=== PATIENT | female | born 1930 | race Caucasian/White ===

== ENCOUNTER 2017-09-06 12:23 | Emergency (ER) | payer MEDICARE, BC ==
[~2017-09-06] VITALS: Ht 167.6 cm; Wt 62.7 kg
[~2017-09-06 12:23] MED LIST: CEFU1TAB43 PO; SYNT75TA PO
[2017-09-06 12:33] VITALS: BP 139/62; PULSE 83; RESP 16; TEMP 99.1; O2SAT 97
[2017-09-06] MEDS ORDERED: SODIUM CHLORIDE 0.9% FLUSH 10 ML FLUSH IV FLUSH PRN (13:00)
--- NOTE | 2017-09-06 13:08 | PD ---
HPI Chief Complaint: Abdominal Pain Time Seen by Provider: 12:39 Travel History International Travel<30 days: No Contact w/Intl Traveler<30days: No Traveled to known affect area: No History of Present Illness HPI Patient is an 87-year-old female with history of gastroparesis, hypothyroidism, gerd who presents to the emergency room for evaluation of abdominal pain with nausea and vomiting. Patient reports that she had some wings to eat last night for dinner, reports that shortly thereafter, she began to have epigastric pain. Patient reports that she has been feeling nauseous and has been vomiting all night. Patient reports that she has an uncomfortable sensation to her epigastrium. Denies any chest pain or shortness of breath. Patient denies any constipation or diarrhea. Patient reports that she does follow-up with waistline joiner at [facility], she is unsure of the name of her waistline joiner. Reports that when she has had "gastritis," in the past, she has had similar symptoms. PFSH Past Medical History Cancer: No Cardiovascular Problems: No Diabetes: No Diminished Hearing: Yes (RIGHT EAR MUFFLED) Endocrine: Yes Genitourinary: No Hepatitis: No Hiatal Hernia: Yes Immune Disorder: No Musculoskeletal: No Neurologic: No Psychiatric: No Reproductive: No Respiratory: No Thyroid Disease: Yes ?: Not Menopausal: Yes Past Surgical History Abdominal Surgery: Yes (BOWEL OBSTRUCTION 2 YEARS AGO ) Eye Surgery: Yes (BILATERAL CATARACT SX) Gynecologic Surgery: Yes (HYSTERECTOMY ) Hysterectomy: Yes Joint Replacement: No Pacemaker: No Tympanostomy Tube: Yes (AT 10 Y/O) Social History Alcohol Use: No Tobacco Use: No Substance Use: No Allergies-Medications (Allergen,Severity, Reaction): Coded Allergies: celecoxib (Unverified Allergy, Severe, 09/06/17) penicillin G (Unverified Allergy, Severe, 09/06/17) Reported Meds & Prescriptions Reported Meds & Active Scripts Active Miralax Powder (Polyethylene Glycol 3350 Powder) 17 Gm Powd 17 Gm PO DAILY Mix and dissolve one measuring cap-ful (17 grams) in water or juice. Reported [domperidone] 10 Mg PO Q6HR Levothyroxine (Levothyroxine Sodium) 75 Mcg Tab 75 Mcg PO DAILY Pantoprazole (Pantoprazole Sodium) 40 Mg Tab 40 Mg PO DAILY Review of Systems General / Constitutional: No: Fever Eyes: No: Visual changes HENT: No: Headaches Cardiovascular: No: Chest Pain or Discomfort, Palpitations, Irregular Rhythm, Tachycardia Respiratory: No: Shortness of Breath Gastrointestinal: Positive: Nausea, Vomiting, Abdominal Pain, No: Diarrhea, Constipation Genitourinary: No: Dysuria Musculoskeletal: No: Pain Skin: No Rash Neurologic: No: Weakness Psychiatric: No: Depression Endocrine: No: Polydipsia Hematologic/Lymphatic: No: Easy Bruising Physical Exam Narrative GENERAL: Mild distress SKIN: Focused skin assessment warm/dry. HEAD: Atraumatic. Normocephalic. EYES: Pupils equal and round. No scleral icterus. No injection or drainage. ENT: No nasal bleeding or discharge. Mucous membranes pink and moist. NECK: Trachea midline. No JVD. CARDIOVASCULAR: Regular rate and rhythm. No murmur appreciated. RESPIRATORY: No accessory muscle use. Clear to auscultation. Breath sounds equal bilaterally. GASTROINTESTINAL: Abdomen soft, increased tenderness to epigastrium with no rebound or guarding, nondistended. Hepatic and splenic margins not palpable. MUSCULOSKELETAL: No obvious deformities. No clubbing. No cyanosis. No edema. NEUROLOGICAL: Awake and alert. No obvious cranial nerve deficits. Motor grossly within normal limits. Normal speech. PSYCHIATRIC: Appropriate mood and affect; insight and judgment normal. Data Data Last Documented VS Vital Signs Date Time Temp Pulse Resp B/P (MAP) Pulse Ox O2 Delivery O2 Flow Rate FiO2 09/06/17 15:15 86 18 155/77 (103) 99 Room Air 09/06/17 12:33 99.1 Orders Orders Urinalysis - C+S If Indicated (09/06/17 12:30) Complete Blood Count With Diff (09/06/17 12:52) Comprehensive Metabolic Panel (09/06/17 12:52) Lipase (09/06/17 12:52) Prothrombin Time / Inr (Pt) (09/06/17 12:52) Act Partial Throm Time (Ptt) (09/06/17 12:52) Iv Access Insert/Monitor (09/06/17 12:52) Ecg Monitoring (09/06/17 12:52) Oximetry (09/06/17 12:52) NPO (09/06/17 12:52) Sodium Chloride 0.9% Flush (Ns Flush) (09/06/17 13:00) Electrocardiogram (09/06/17 12:52) Ct Abd/Pel W Iv Contrast(Rout) (09/06/17 12:58) Sodium Chlor 0.9% 1000 Ml Inj (Ns 1000 M (09/06/17 14:15) Morphine Inj (Morphine Inj) (09/06/17 14:15) Ondansetron Inj (Zofran Inj) (09/06/17 14:15) Iohexol 350 Inj (Omnipaque 350 Inj) (09/06/17 14:37) Ondansetron Inj (Zofran Inj) (09/06/17 15:15) Al-Mag Hy-Si 40-40-4 Mg/Ml Liq (Mag-Al P (09/06/17 15:30) Lidocaine 2% Viscous (Xylocaine 2% Visco (09/06/17 15:30) Ed Discharge Order (09/06/17 16:07) Labs Laboratory Tests Test 09/06/17 13:10 09/06/17 13:15 Urine Collection Type CLEAN CATCH Urine Color YELLOW Urine Turbidity CLEAR Urine pH 7.5 Urine Specific [place] 1.020 Urine Protein NEG mg/dL Urine Glucose (UA) NEG mg/dL Urine Ketones TRACE mg/dL Urine Occult Blood NEG Urine Nitrite NEG Urine Bilirubin NEG Urine Urobilinogen 0.2 MG/DL Urine Leukocyte Esterase NEG Urine WBC 0-2 /hpf Urine Squamous Epithelial Cells > 8 /hpf Urine Amorphous Sediment FEW Microscopic Urinalysis Comment CULT NOT INDICATED Urine Collection Time 13:10 White Blood Count 6.6 TH/MM3 Red Blood Count 4.17 MIL/MM3 Hemoglobin 13.4 GM/DL Hematocrit 39.0 % Mean Corpuscular Volume 93.7 FL Mean Corpuscular Hemoglobin 32.1 PG Mean Corpuscular Hemoglobin Concent 34.2 % Red Cell Distribution Width 13.0 % Platelet Count 317 TH/MM3 Mean Platelet Volume 8.2 FL Neutrophils (%) (Auto) 69.4 % Lymphocytes (%) (Auto) 17.7 % Monocytes (%) (Auto) 11.4 % Eosinophils (%) (Auto) 0.5 % Basophils (%) (Auto) 1.0 % Neutrophils # (Auto) 4.6 TH/MM3 Lymphocytes # (Auto) 1.2 TH/MM3 Monocytes # (Auto) 0.7 TH/MM3 Eosinophils # (Auto) 0.0 TH/MM3 Basophils # (Auto) 0.1 TH/MM3 CBC Comment DIFF FINAL Differential Comment Prothrombin Time 10.5 SEC Prothromb Time International Ratio 1.0 RATIO Activated Partial Thromboplast Time 25.7 SEC Blood Urea Nitrogen 13 MG/DL Creatinine 0.62 MG/DL Random Glucose 146 MG/DL Total Protein 6.8 GM/DL Albumin 3.5 GM/DL Calcium Level 10.3 MG/DL Alkaline Phosphatase 67 U/L Aspartate Amino Transf (AST/SGOT) 13 U/L Alanine Aminotransferase (ALT/SGPT) 13 U/L Total Bilirubin 0.3 MG/DL Sodium Level 138 MEQ/L Potassium Level 3.7 MEQ/L Chloride Level 105 MEQ/L Carbon Dioxide Level 26.8 MEQ/L Anion Gap 6 MEQ/L Estimat Glomerular Filtration Rate 91 ML/MIN Lipase 145 U/L [facility] Medical Decision Making Medical Screen Exam Complete: Yes Emergency Medical Condition: Yes Medical Record Reviewed: Yes Interpretation(s) EKG at 1304: NSR at 76bpm, qt/qtc: 362/392, no acute st or t wave changes Vital Signs Date Time Temp Pulse Resp B/P (MAP) Pulse Ox O2 Delivery O2 Flow Rate FiO2 09/06/17 12:33 99.1 83 16 139/62 (87) 97 Differential Diagnosis Pancreatitis, gastritis, gastroenteritis, cholecystitis, electrolyte abnormality , ACS, arrhythmia, gastric ulcer Narrative Course 87-year-old female with history of gastroenteritis and gastroparesis, who presents the emergency room with complaints of nausea and vomiting and epigastric pain since last night. Symptoms began after eating wings for dinner. During the course of the patients emergency department visit, the patients history, examination, and differential diagnosis were reviewed with the patient. The patient was placed on a cardiac rehabilitation program director with oximetry and frequent blood pressure monitoring. The patient had an IV access obtained and blood work sent for analysis. The patient was initially provided IV fluids, IV Zofran as well as IV morphine The patients laboratory studies were reviewed and remarkable for: CBC & BMP Diagram 09/06/17 13:15 Total Protein 6.8, Albumin 3.5, Calcium Level 10.3 H, Alkaline Phosphatase 67, Aspartate Amino Transf (AST/SGOT) 13 L, Alanine Aminotransferase (ALT/SGPT) 13, Total Bilirubin 0.3 Radiology studies were reviewed and remarkable for Last Impressions Abdomen/Pelvis CT 09/06/17 1258 Signed Impressions: Service Date/Time: Wednesday, September 06, 2017 14:29 - CONCLUSION: 1. Status post gastric surgery. 2. Mild hiatal hernia. 3. Colonic diverticula. 4. Large amount of stool in the rectum. 5. Hepatic steatosis with suspected scattered hepatic cysts. 6. Mild nonspecific dilatation of the pancreatic duct. Blake Andrade MD Patient reevaluated, patient feeling much better at this time. I reviewed all labs and all studies as well as all incidental findings with patient detail. Patient will follow-up with her waistline joiner as well as her primary care doctor, she will return to the emergency room as needed. Diagnosis Primary Impression: Abdominal pain Qualified Codes: R10.13 - Epigastric pain Additional Impression: Constipation Qualified Codes: K59.00 - Constipation, unspecified Patient Instructions: General Instructions Additional Instructions: Please provide patient with a copy of their lab work and studies at discharge* * Please follow up with your primary care doctor in 2-3 days Return to the ER if symptoms worsen or progress Return to the ER as needed Please follow-up with a waistline joiner Med/Other Pt SpecificInfo: Prescription(s) given Scripts Polyethylene Glycol 3350 Powder (Miralax Powder) 17 Gm Powd 17 GM PO DAILY for Constipation, #1 CAN 0 Refills Mix and dissolve one measuring cap-ful (17 grams) in water or juice. Prov: Katie Saunders DO 09/06/17 Disposition: 01 DISCHARGE HOME Condition: Stable Katie Saunders DO Sep 06, 2017 13:08
[2017-09-06 13:10] VITALS: O2SAT 97
[2017-09-06 13:27] LABS: AUTOMATED NEUTROPHIL # 4.6 TH/MM3 (1.8-7.7); BASOPHIL # 0.1 TH/MM3 (0-0.2); EOSINOPHIL % 0.5 % (0.0-4.0); HEMOGLOBIN 13.4 GM/DL (11.6-15.3); LYMPH % 17.7 % (9.0-44.0); LYMPHOCYTE # 1.2 TH/MM3 (1.0-4.8); MEAN CELL VOLUME 93.7 FL (80.0-100.0); MEAN CORPUSCULAR HEMOGLOBIN 32.1 PG (27.0-34.0); MEAN CORPUSCULAR HGB CONC 34.2 % (32.0-36.0); MEAN PLATELET VOLUME 8.2 FL (7.0-11.0); MONO % 11.4 % (0.0-8.0); MONOCYTE # 0.7 TH/MM3 (0-0.9); NEUT % 69.4 % (16.0-70.0); PLATELET COUNT 317 TH/MM3 (150-450); RED BLOOD COUNT 4.17 MIL/MM3 (4.00-5.30); WHITE BLOOD COUNT 6.6 TH/MM3 (4.0-11.0)
[2017-09-06 13:29] LABS: BILIRUBIN, URINE NEG (NEG); BLOOD, URINE NEG (NEG); GLUCOSE,URINE NEG (NEG); KETONE, URINE TRACE mg/dL (NEG); NITRITE,URINE NEG (NEG); PH, URINE 7.5 (5.0-8.5); URINE COLOR YELLOW (YELLW/STRAW); URINE LEUKOCYTE ESTERASE NEG (NEG)
[2017-09-06 13:39] LABS: AMORPHOUS SEDIMENT, URINE FEW; SQUAMOUS EPITHELIAL CELL URINE > 8 /hpf (0-5); WBC, URINE 0-2 /hpf (0-5)
[2017-09-06 13:40] LABS: CHLORIDE 105 MEQ/L (98-107); SODIUM (NA) 138 MEQ/L (136-145)
[2017-09-06 13:43] LABS: CALCIUM 10.3 MG/DL (8.5-10.1)
[2017-09-06 13:44] LABS: ALBUMIN 3.5 GM/DL (3.4-5.0); BICARBONATE 26.8 MEQ/L (21.0-32.0); BLOOD UREA NITROGEN 13 MG/DL (7-18); GLUCOSE,RANDOM 146 MG/DL (74-106)
[2017-09-06 13:46] LABS: ALT (GPT) 13 U/L (10-53); PROTHROMBIN TIME - PATIENT 10.5 SEC (9.8-11.6)
[2017-09-06 13:47] LABS: AST (GOT) 13 U/L (15-37); CREATININE 0.62 MG/DL (0.50-1.00); GLOMERULAR FILTRATION RATE 91 ML/MIN (>89)
[2017-09-06 13:48] LABS: TOTAL BILIRUBIN ADULT 0.3 MG/DL (0.2-1.0); TOTAL PROTEIN 6.8 GM/DL (6.4-8.2)
[2017-09-06 13:49] LABS: ALKALINE PHOSPHATASE 67 U/L (45-117)
[2017-09-06 14:10] VITALS: BP 161/73; PULSE 71; RESP 18; O2SAT 97
[2017-09-06] MEDS ORDERED: SODIUM CHLOR 0.9% 1000 ML INJ 1,000 ML IV ONE (14:15)
[2017-09-06] MEDS ORDERED: ONDANSETRON HCL 4 MG/2 ML VIAL IV PUSH ONE ×2 (14:15→15:15)
[2017-09-06] MEDS ORDERED: MORPHINE SULFATE 4 MG/ML INJ IV PUSH ONE (14:15)
[2017-09-06] MEDS ORDERED: IOHEXOL 350 MG/ML 10 ML VIAL (for RAD DIAG) IVCONTRAST ONE (14:37)
[2017-09-06 15:15] VITALS: BP 155/77; PULSE 86; RESP 18; O2SAT 99
[2017-09-06] MEDS ORDERED: domperidone PO (15:24)
[2017-09-06] MEDS ORDERED: PANT40TA3 PO (15:24)
[2017-09-06] MEDS ORDERED: LEVO75TA3 PO (15:24)
[2017-09-06] MEDS ORDERED: LIDOCAINE VISCOUS 2% SOLN 15 ML UDC PO ONE (15:30)
[2017-09-06] MEDS ORDERED: ALUMINUM/MAGNESIUM/SIMETH 30 ML CUP PO ONE (15:30)
--- NOTE | 2017-09-06 15:47 | RADRPT ---
EXAM DATE/TIME: 09/06/2017 14:29 [place] COMPARISON: No previous studies available for comparison. INDICATIONS : Epigastric pain. IV CONTRAST: 90 cc Omnipaque 350 (iohexol) IV ORAL CONTRAST: No oral contrast ingested. RADIATION DOSE: 10.81 CTDIvol (mGy) MEDICAL HISTORY : Hernia, hiatal. SURGICAL HISTORY : Hysterectomy. Bowel surgery for obstruction. ENCOUNTER: Initial ACUITY: 2 days PAIN SCALE: 5/10 LOCATION: upper quadrant TECHNIQUE: Volumetric scanning of the abdomen and pelvis was performed. Using automated exposure control and ad justment of the mA and/or kV according to patient size, radiation dose was kept as low as reasonably achievable to obtain optimal diagnostic quality images. DICOM format image data is available electro nically for review and comparison. FINDINGS: LOWER LUNGS: The visualized lower lungs are clear. LIVER: The liver demonstrates diffuse low density. There are several low density masses seen in the liver li carmen related to cysts measuring up to 1.6 cm. SPLEEN: Normal size without lesion. PANCREAS: The pancreatic duct appears prominent in the pancreatic head and body measuring up to 5 mm. KIDNEYS: Normal in size and shape. There is no mass, stone or hydronephrosis. ADRENAL GLANDS: Within normal limits. VASCULAR: There is no aortic aneurysm. Atherosclerotic calcifications are seen. BOWEL/MESENTERY: The patient is status post gastric surgery with a suture line seen along the right lateral upper [place] margin. There appears to be a small hiatal hernia. There are colonic diverticula. There is a larg e stool seen in the rectum. ABDOMINAL WALL: Within normal limits. RETROPERITONEUM: There is no lymphadenopathy. BLADDER: No wall thickening or mass. REPRODUCTIVE: The patient is status post hysterectomy. INGUINAL: There is no lymphadenopathy or hernia. MUSCULOSKELETAL: There is degenerative change in the lumbar spine. There appears to be a chronic compression deformity at the superior aspect of the L1 vertebral body. There is air seen in the posterior medial right vincent ac bone likely related to vacuum phenomenon. CONCLUSION: 1. Status post gastric surgery. 2. Mild hiatal hernia. 3. Colonic diverticula. 4. Large amount of stool in the rectum. 5. Hepatic steatosis with suspected scattered hepatic cysts. 6. Mild nonspecific dilatation of the pancreatic duct. Blake Andrade MD on September 06, 2017 at 15:38 Board Certified Radiologist. This report was verified electronically.
[2017-09-06] MEDS ORDERED: MIRA3350 PO (16:04)
[2017-09-06 16:27] VITALS: BP 155/77
--- NOTE | 2017-09-07 21:27 | EKG ---
Date Performed: 09/06/2017 Time Performed: 13:04:54 PTAGE: 87 years EKG: Sinus rhythm NORMAL ECG PREVIOUS TRACING : 03/30/2013 07.13 DOCTOR: Joshua Rehman Interpretating Date/Time 09/07/2017 21:26:24
== END 2017-09-06 16:29 | disposition home or self-care (01) ==
LOC: PHED 12:23
DX: R10.13 Epigastric pain (principal); K59.00 Constipation, unspecified; K44.9 Diaphragmatic hernia without obstruction or gangrene; K76.0 Fatty (change of) liver, not elsewhere classified; E03.9 Hypothyroidism, unspecified; K21.9 Gastro-esophageal reflux disease without esophagitis; Z87.19 Personal history of other diseases of the digestive system; Z79.899 Other long term (current) drug therapy; Z88.0 Allergy status to penicillin
CPT/HCPCS: 74177; 80053; 81001; 83690; 85025; 85610; 85730; 93005; 96361; 96374; 96375; 96376; 99284; J2270; J2405; J7030; Q9967